=== PATIENT | male | born 1990 | race Caucasian/White ===

== ENCOUNTER 2017-05-01 11:59 | Emergency (ER) | payer OTHER ==
[2017-05-01 12:04] VITALS: RESP 16; TEMP 98.2
[2017-05-01] MEDS ORDERED: LET GEL TOPICAL 1 EA SYR TP ONE ×2 (14:30→14:33)
--- NOTE | 2017-05-01 14:41 | EDPHY ---
H & P Time Seen by Provider: 05/01/17 14:40 HPI/ROS: Chief complaint. Finger laceration HPI. 27-year-old male laceration left index finger verses a scalpel during anatomy class. He was holding a pig heart that he was dissecting and dropped it and somehow in trying to catch it he cut his finger on the scalp. Denies focal weakness paresthesias. No sense of foreign body. No other injuries. Patient is right handed ROS Constitutional. no fever/chills, no weakness Eyes. no problems with vision ENT. no sore throat, no nasal drainage Cardiovascular. no chest pain Respiratory. no shortness of breath, no cough Abdominal. no abdominal pain, no nausea/vomiting, no diarrhea . no problems urinating MS. no calf pain/swelling, no neck/back pain, no joint pain Skin. Laceration left index finger Lymph. no swollen glands Neuro. no headache, no dizziness, no difficulty walking or with speech Past Medical/Surgical History: Tib-fib fracture with surge Social History: Single, nonsmoker, no alcohol Smoking Status: Never smoked Physical Exam: General Appearance: Alert pleasant well-developed male mild distress vital signs stable Eyes: Pupils equal and round no pallor or injection. ENT, Mouth: Mucous membranes are moist. Respiratory: There are no retractions, lungs are clear to auscultation. Cardiovascular: Regular rate and rhythm. Gastrointestinal: Abdomen is soft and nontender, no masses, bowel sounds normal. Neurological: Awake and alert, sensory and motor exams grossly normal. Skin: 1 cm laceration to ulnar aspect of the proximal left index finger. Distal motor vascular sensitivity intact. Strength is tested against resistance flexion extension this is normal. His sensation is normal too Musculoskeletal: Neck is supple nontender. Extremities symmetrical, full range of motion. Psychiatric: Patient is oriented X 3, there is no agitation. Constitutional: Initial Vital Signs Temperature (C) 36.8 C 05/01/17 12:01 Heart Rate 67 05/01/17 12:01 Respiratory Rate 16 05/01/17 12:01 Blood Pressure 127/79 H 05/01/17 12:01 O2 Sat (%) 95 05/01/17 12:01 O2 Delivery Mode Room Air Allergies/Adverse Reactions: No Known Allergies Allergy (Unverified 10/25/14 23:00) Home Medications: Medication Instructions Recorded NK [No Known Home Meds] 10/25/14 Medical Decision Making Procedures: Procedure: Laceration repair. Verbal consent was obtained from the patient. The 1 cm laceration on the left index finger was anesthetized in the usual fashion. The wound was irrigated, draped and explored to its base with a gloved finger. There were no deep structures involved. No tendon injury was identified. The wound was repaired with four 5-0 Prolene sutures ]. The wound repair was simple. The procedure was performed by myself. ED Course/Re-evaluation: Patient remained stable. The patient and I discussed treatment plan including criteria for return importance of follow-up and further evaluation. He expresses understanding and agreement Differential Diagnosis: I considered tendon laceration, nerve injury, retained foreign body, infection potential of wound Departure - Departure Disposition: Home, Routine, Self-Care Clinical Impression: Finger laceration Qualifiers: Encounter type: initial encounter Finger: index finger Damage to nail status: without damage Foreign body presence: without foreign body Laterality: left Qualified Code(s): S61.211A - Laceration without foreign body of left index finger without damage to nail, initial encounter Condition: Good Instructions: Care For Your Stitches (ED) Additional Instructions: Keep the cut clean and dry. You may shower and wash your hands with stitches in. Avoid immersion. Return for signs of infection. Stitches out 10 days Referrals: NONE *PRIMARY CARE P,. [Primary Care Provider] - As per Instructions
[2017-05-01 15:14] VITALS: BP 125/80; PULSE 65; O2SAT 98
== END 2017-05-01 15:13 | disposition home or self-care (01) ==
PROC: 0HQGXZZ Repair Left Hand Skin, External Approach (ICD-10-PCS; principal; 2017-05-01)
DX: S61.211A Laceration without foreign body of left index finger without damage to nail, initial encounter (principal); W45.8XXA Other foreign body or object entering through skin, initial encounter; Y99.8 Other external cause status; Y93.89 Activity, other specified